=== PATIENT | female | born 1990 | race Caucasian/White ===

== ENCOUNTER 2020-07-07 18:40 | Emergency (ER) | payer OTHER, MEDICAID ==
[~2020-07-07] VITALS: Ht 157.5 cm; Wt 59.0 kg
[2020-07-07 21:37] VITALS: BP 127/89
[2020-07-07] MEDS ORDERED: XANAX0.5 MG PO (21:39)
[2020-07-07] MEDS ORDERED: ZYRTEC10 MG PO (21:39)
== END 2020-07-07 21:37 | disposition home or self-care (01) | DRG 552 ==
LOC: ED 18:40
DX: S16.1XXA Strain of muscle, fascia and tendon at neck level, initial encounter (principal); S20.212A Contusion of left front wall of thorax, initial encounter; F41.9 Anxiety disorder, unspecified; V47.5XXA Car driver injured in collision with fixed or stationary object in traffic accident, initial encounter

== ENCOUNTER 2021-02-13 07:34 | Emergency (ER) | payer MEDICAID ==
[~2021-02-13 07:34] MED LIST: XANAX0.5 MG PO; ZYRTEC10 MG PO
[2021-02-13] MEDS ORDERED: KEFLEX500 MG PO (08:44)
[2021-02-13 09:18] VITALS: BP 122/70
== END 2021-02-13 09:18 | disposition home or self-care (01) ==
LOC: ED 07:34
DX: T63.431A Toxic effect of venom of caterpillars, accidental (unintentional), initial encounter (principal); F41.9 Anxiety disorder, unspecified

== ENCOUNTER 2022-02-24 10:20 | Emergency (ER) | payer MEDICAID ==
[~2022-02-24] VITALS: Ht 157.5 cm; Wt 52.2 kg
[~2022-02-24 10:20] MED LIST changes: +KEFLEX500 MG PO
[2022-02-24 10:34] VITALS: BP 116/79
[2022-02-24] MEDS ORDERED: OFLOXACIN0.3 % OD (10:46)
[2022-02-24 11:00] VITALS: BP 116/79
== END 2022-02-24 11:00 | disposition home or self-care (01) ==
LOC: ED 10:20
DX: S05.01XA Injury of conjunctiva and corneal abrasion without foreign body, right eye, initial encounter (principal)